=== PATIENT | female | born 1950 | race Caucasian/White ===

== ENCOUNTER 2017-09-28 14:11 | Emergency (ER) | payer OTHER ==
--- NOTE | 2017-09-28 14:55 | EDPHY ---
H & P Stated Complaint: ?beginning cold sore r chin/tues with numbness tingling now into r face and Time Seen by Provider: 09/28/17 14:50 HPI/ROS: CHIEF COMPLAINT: Facial numbness HISTORY OF PRESENT ILLNESS: The patient is a 67 y/o female arriving with her complaining of facial numbness onset Monday, 2 days ago. She first noticed numbness on her chin that was reminiscent of prior cold sores, though it spared her lips, so she started Valtrex and has taken 3 three doses so far. Yesterday the sensation spread to her right jaw and cheek area concerning her for possible shingles. She has not noticed any associated lesions. Today the sensation spread to right parietal scalp and her right eye feels "heavy" so she went to urgent care and was referred on to the ED. She did feel anxious, lightheaded, and nauseated while driving to urgent care, but these symptoms have since resolved. She momentarily confused the location of her 's work while at urgent care, but recognized this immediately and corrected herself ; she otherwise denies confusion. She denies tooth ache, mouth sores, visible lesions, fever, trauma, vision changes, headache, ear ache, hearing changes, speech difficulty, difficulty walking, paresthesias or weakness in extremities. No significant medical history apart from two right eye surgeries. She completed screening tests one month ago including negative carotid dopplers bilaterally and had zero calcium score on EBCT. They did recommend an echocardiogram due to possible aortic dilatation seen on the EBCT. REVIEW OF SYSTEMS: A ten point review of systems was performed and is negative with the exception of the items mentioned in the HPI. Past medical history: Denies Past surgical history: Right eye cataract removal 2017, and prior right eye surgery 2017. Family history: Mother had dementia. Father young. No known strokes in immediate family members. Social history: at bedside. Nonsmoker. Social alcohol use. 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 PCP: Dr. London General Appearance: Alert. Vital signs reviewed. Blood pressure 156/81. Eyes: Pupils equal and round, no conjunctival injection, no discharge. Anicteric. ENT, Mouth: Mucous membranes are moist, no oropharyngeal erythema or edema. Left TM scarring, otherwise TMs clear bilaterally. Neck: No lymphadenopathy, supple. Respiratory: Lungs are clear to auscultation; no wheezes, rales, or rhonchi. Cardiovascular: Regular rate and rhythm; no murmur, rub, or gallop. Gastrointestinal: Abdomen is soft and nontender, no masses or organomegaly. Skin: Warm and dry, no rashes on exposed skin, normal color. Back: Nontender to palpation over the thoracolumbar spine. No CVAT. Extremities: No lower extremity edema, no calf tenderness or swelling. Neurological: Alert and oriented. Moving all four extremities easily and equally. Cranial nerves II through XII are examined and are intact (visual acuity not tested). Mildly flattened nasolabial fold on the right compared to left. Strength is 5 over 5 bilaterally with testing of all major motor groups. Sensation is intact to light touch over all 4 extremities including ability to distinguish between sharp and dull sensations. Deep tendon reflexes are 2+ in the biceps and knees bilaterally. Gait is normal. [id number] is performed accurately. Psychiatric: Normal affect. - Personal History Current Tetanus Diphtheria and Acellular Pertussis (TDAP): Unsure - Medical/Surgical History Hx Asthma: No Hx Chronic Respiratory Disease: No Hx Diabetes: No Hx Cardiac Disease: No Hx Renal Disease: No Hx Cirrhosis: No Hx Alcoholism: No Hx HIV/AIDS: No Hx Splenectomy or Spleen Trauma: No Other PMH: denies - Social History Smoking Status: Never smoked Constitutional: Initial Vital Signs Temperature (C) 36.7 C 09/28/17 14:18 Heart Rate 87 09/28/17 14:18 Respiratory Rate 18 09/28/17 14:18 Blood Pressure 156/81 H 09/28/17 14:18 O2 Sat (%) 98 09/28/17 14:18 O2 Delivery Mode Room Air Allergies/Adverse Reactions: Penicillins Allergy (Severe, Verified 09/28/17 14:18) SWELLING/HIVES Home Medications: Medication Instructions Recorded Valcyclovir 09/28/17 Medical Decision Making - Diagnostics EKG Interpretation: 12 lead EKG is interpreted in Trace master View by emergency department physician. No ischemic changes. No arrhythmia. Imaging: Discussed imaging studies w/ scallop dredger Radiologist, I viewed and interpreted images myself ED Course/Re-evaluation: This is a healthy 67 y/o female who presents with a 2-day history of mild and slowly progressing facial numbness from her chin along her right jaw to her right parietal scalp. She has no other associated symptoms or obvious preceding triggers. She has a completely normal neurologic exam apart from perhaps mild flattening of her right nasolabial fold. Minimal risk factors for stroke, but due to progressing and still present symptoms I have recommended brain MRI for best evaluation of this, which she agrees to. IV, labs, EKG ordered. The 12 lead EKG was interpreted by myself. Sinus mechanism rate 80. See hard copy and/or "tracemaster" electronic copy for interpretation. Brain MR: negative. Labs unremarkable. Reevaluated patient and discussed work up. I've found no obvious cause or dangerous causes for her symptoms here. Her neuro exam remains unchanged. She is feeling well and is comfortable following up with her PCP next week. Strict return precautions discussed. She is comfortable with this plan. Differential Diagnosis: Considered a differential diagnosis that includes but is not limited to dental infection, headache phenomenon, shingles, CVA, TIA, MS, intracranial mass or hemorrhage. - Data Points Laboratory Results: Laboratory Results 09/28/17 14:58 09/28/17 14:58 Departure - Departure Disposition: Home, Routine, Self-Care Clinical Impression: Facial paresthesia Condition: Good Instructions: Paresthesia (ED) Additional Instructions: Follow up with your doctor next week. Return to the ED for headache, weakness, numbness, vision changes, confusion, or any other worsening of condition. Referrals: Carlene London MD [Primary Care Provider] - As per Instructions Report Scribed for: Annalise Pena Report Scribed by: Jessi Thompson Date of Report: 09/28/17 Time of Report: 15:17 Physician Review and Approval Statement: 09/28/17 15:33 Portions of this note were transcribed by the pediatric medical assistant. I, Dr. Annalise Pena, personally performed the history, physical exam, and medical decision- making; and confirmed the accuracy of the information in the transcribed note.
--- NOTE | 2017-09-28 15:26 | CPEKG ---
Heart Rate: 80 RR Interval: 750 P-R Interval: 148 QRSD Interval: 78 QT Interval: 376 QTC Interval: 434 P [place]: 70 QRS [place]: 32 T Wave [place]: 53 EKG Severity - BORDERLINE ECG - EKG Impression: SINUS RHYTHM EKG Impression: PROBABLE LEFT ATRIAL ABNORMALITY Electronically Signed By: Annalise Pena 28-Sep-2017 23:07:34
[2017-09-28 15:32] LABS: PLATELET COUNT 235 10^3/uL (150-400)
[2017-09-28 17:31] VITALS: BP 122/84
== END 2017-09-28 17:30 | disposition home or self-care (01) ==
DX: R20.2 Paresthesia of skin (principal)

== ENCOUNTER 2017-11-03 | Emergency (ER) | payer OTHER, MEDICARE | END 2017-11-03 20:00 | disposition home or self-care (01) | DX: R20.2 Paresthesia of skin (principal) | CPT/HCPCS: 70544; 70549; 70553; 93005; 99285; A9585; 82435-PO; 82565-PO; 82947-PO; 84132-PO; 84295-PO; 84520-PO; 85014-PO ==

== ENCOUNTER → 2017-12-18 | Outpatient (CLI) | payer OTHER, MEDICARE | LOC: BMCIMAGING 14:37 | PROVIDERS: ATTEND Internal Medicine | DX: M81.0 Age-related osteoporosis without current pathological fracture (principal) ==